=== PATIENT | male | born 1940 | race Caucasian/White ===

== ENCOUNTER 2018-09-30 21:48 | Emergency (ER) | payer MEDICARE, OTHER ==
--- NOTE | 2018-09-30 22:12 | ED Physician Documentation ---
Head Injury - HISTORIAN Historian: patient - HPI Stated Complaint: Fell and hit head Chief Complaint: Fall (Frontal head injury) Additional Information: Patient is a 78-year-old male that presents to the ER with his . Patient states that he tripped over the dogs and fell to his knees and then fell forward hitting his forehead. states that he immediately had a large goose egg to the left side of his forehead- upon arrival swelling is much better per - they have been keeping ice on it and it is almost gone. Patient denies any LOC, dizziness, or confusion. He states that he feels completely fine but made his come in and get checked out. Onset: just prior to arrival Where: home Timing: better Context: fall Severity: mild Loss of Consciousness: no loss of consciousness - ROS CONST: no problems CVS/RESP: none EYES/ENT: none MS/SKIN/LYMPH: denies: weakness GI/: denies: nausea, vomiting - PAST HX Past History: other (HTN, DVT, Hypothyroid) Immunizations: UTD Allergies/Adverse Reactions: Allergies Allergy/AdvReac Type Severity Reaction Status Date / Time No Known Drug Allergies Allergy Verified 09/30/18 22:01 Home Medications: Ambulatory Orders Medication Instructions Recorded Levothyroxine Sodium [Synthroid] 75 mcg PO DAILY 09/30/18 Rivaroxaban [Xarelto] PO DAILY 09/30/18 - SOCIAL HX Smoking History: non-smoker Alcohol Use: none Drug Use: none - FAMILY HX Family History: none - VITAL SIGNS Vital Signs: Vital Signs Temp Pulse Resp BP Pulse Ox 97.9 F 64 16 151/63 98 09/30/18 21:48 09/30/18 22:17 09/30/18 22:17 09/30/18 22:17 09/30/18 21:48 - REVIEWED ASSESSMENTS Nursing Assessment Reviewed: Yes Vitals Reviewed: Yes Head Injury Physical Exam - Physical Exam General Appearance: no acute distress, alert Head: trauma (mild swelling to the left side of forehead) Neck: non-tender, painless ROM Eyes: KIERRA, EOMI, lids & conjunct. nml ENT: nml external inspection, pharynx nml Neuro: alert, oriented x3, cooperative, mood/affect nml Cranial: nml as tested Cerebellar: nml gait Sensorimotor: motor nml, sensation nml Resp/CVS: breath sounds nml, heart sounds nml Back: non-tender Skin: warm/dry Extremities: gait nml - [place] Coma Score Coma Scale Eye Opening: Spontaneous Coma Scale Verbal: Oriented Coma Scale Motor: Obeys Commands Discharge Clincal Impression: Head injury Referrals: Velia Bruno FNP [NURSE PRACTITIONER] - 2 Days Additional Instructions: Continue to use ice to forehead May use Tylenol for headache Monitor for signs of internal bleeding; confusion, irritability, unsteady gait Return to ER if any of the above symptoms present Follow up with PCP as needed Condition: Good Disposition: 01 HOME, SELF-CARE Decision to Admit: NO Decision Time: 22:12
[2018-09-30 22:21] VITALS: BP 151/63
== END 2018-09-30 22:15 | disposition home or self-care (01) ==
LOC: ED 21:48
DX: S09.90XA Unspecified injury of head, initial encounter (principal); W01.10XA Fall on same level from slipping, tripping and stumbling with subsequent striking against unspecified object, initial encounter; Y93.9 Activity, unspecified; Y92.009 Unspecified place in unspecified non-institutional (private) residence as the place of occurrence of the external cause; Z79.01 Long term (current) use of anticoagulants
CPT/HCPCS: 99282